=== PATIENT | female | born 1995 | race Caucasian/White ===

== ENCOUNTER 2017-02-06 17:05 | Emergency (ER) | payer BC ==
[2017-02-06 18:01] VITALS: BP 105/67
--- NOTE | 2017-02-06 19:55 | UC ---
Eye Complaint HPI - HPI Summary HPI Summary: 21 female presents with complaints of left eye redness, irritation, drainage and itchiness that has been ongoing intermittently for the past month and a half. Symptoms sometimes occur in her right eye. Patient states she wears contacts and has had issues in the past with them. States she tried to use a new pair which did help her symptoms for a little while however the returned. Admits to yellow/clear drainage and crusting upon waking. Denies fever/chills, vision loss or any other symptoms. Has continued to wear contacts since symptoms began. Admits to seasonal allergies and states that is what she thought it was until symptoms have not improved. Denies PMHx. Admits to swelling over her eyelid sometimes but is has since improved. No trauma or concern for FB. - History of Current Complaint Chief Complaint: UCEye Stated Complaint: LFT EYE IRRITATION Time Seen by Provider: 02/06/17 19:10 Hx Obtained From: Patient Hx Last Menstrual Period: has IUD ?: No Onset/Duration: Sudden Onset, Lasting Weeks - 4, Still Present Timing: Weeks - sometimes worse than other days Severity Initially: Mild Severity Currently: Mild Pain Intensity: 0 Pain Scale Used: 0-10 Numeric Location of Injury: Conjunctiva - Allergies/Home Medications Allergies/Adverse Reactions: Allergies Allergy/AdvReac Type Severity Reaction Status Date / Time No Known Allergies Allergy Verified 02/06/17 17:45 Home Medications: Home Medications Levonorgestrel (Iud) [Mirena IUD] 20 mcg IU SEE INSTRUCTIONS 02/06/17 [History Confirmed 02/06/17] Loratadine [Claritin 10 MG CAP] 10 mg PO DAILY 02/06/17 [History Confirmed 02/06] PMH/Surg Hx/FS Hx/Imm Hx - Additional Past Medical History Additional PMH: denies diabetes, htn admits to seasonal allergies Respiratory History: Asthma - exercise induced - Surgical History Surgical History: None - Family History Known Family History: Positive: None - Social History Alcohol Use: Rare Substance Use Type: None Smoking Status (MU): Never Smoked Tobacco - Immunization History Vaccination Up to Date: Yes Review of Systems Constitutional: Negative Eyes: Drainage, Eye Redness ENT: Negative Respiratory: Negative Cardiovascular: Negative Musculoskeletal: Negative Neurological: Negative All Other Systems Reviewed And Are Negative: Yes Physical Exam Triage Information Reviewed: Yes Appearance: Well-Appearing, No Pain Distress, Well-Nourished Vital Signs: Initial Vital Signs Temp 100.1 F 02/06/17 17:46 Pulse 71 02/06/17 17:46 Resp 16 02/06/17 17:46 BP 105/67 02/06/17 17:46 Pulse Ox 100 02/06/17 17:46 Vital Signs Reviewed: Yes Eyes: Positive: Conjunctiva Inflamed, Discharge - left eye, yellow and purulent , right eye without discharge but erythematous. normal visual acuity. contacts are intact. EOMI, PERRLA. normal fundoscopic exam from what was able to be visualized. ENT: Positive: Normal ENT inspection, Hearing grossly normal, Pharynx normal, TMs normal Neck: Positive: Supple, Nontender, No Lymphadenopathy Respiratory: Positive: Chest non-tender, Lungs clear, Normal breath sounds, No respiratory distress, No accessory muscle use Cardiovascular: Positive: RRR, No Murmur Musculoskeletal: Positive: Strength Intact, ROM Intact Neurological: Positive: Alert Psychological Exam: Normal Skin Exam: Normal Eye Complaint Course/Dx - Course Course Of Treatment: appears to be suffering from conjunctivitis possibly casued by contact use. exacerbated by allergies. told to try switching allergy medication if she is no longer having relief. stop wearing contacts and switch to new pair and new case when symptoms resolve. wash hands before applying contact and do not wear them over night. possibly cause of conjunctivitis. wash hands frequently. follow up with eye doctor. aware of worsening signs and symptoms and educated on possible etiologies. no cocern for abrasion as no trauma or FB, PE findings and HPI. - Differential Dx/Diagnosis Differential Diagnosis/HQI/PQRI: Conjunctivitis, Corneal Abrasion, Foreign Body , Other Provider Diagnoses: conjunctivitis- left eye Discharge - Discharge Plan Condition: Stable Disposition: HOME Prescriptions: Moxifloxacin 0.5% OPHTH(NF) [Vigamox 0.5% OPHTH(NF)] 1 drop LEFT EYE Q3HR #1 [email or web address] Patient Education Materials: Conjunctivitis (ED) Referrals: [facility] [Outside] No Primary Care Phys,NOPCP [Primary Care Provider] - Additional Instructions: Use antibiotic drops as directed for the next 7 days. Remove contacts and throw them away. Do not wear contacts for the next 7-10 days. After 10 days use new pair of contacts and contact case. Recommend trying a different antihistamine if claritin does not seem to be helping with allergies. Wash hands frequently, also wash towels, blankets and pillow cases with hot water to avoid re-infection. Follow up with eye doctor if symptoms persist or do not get better as this may be contact related.
== END 2017-02-06 19:55 | disposition home or self-care (01) ==
LOC: UCCORT 17:05
DX: H10.32 Unspecified acute conjunctivitis, left eye (principal); J45.990 Exercise induced bronchospasm
CPT/HCPCS: 99202; G0463